=== PATIENT | female | born 1975 ===

== ENCOUNTER 2021-06-22 14:36 | Emergency (ER) | payer OTHER ==
[~2021-06-22] VITALS: Ht 180.3 cm; Wt 74.8 kg
[2021-06-22] MEDS ORDERED: ONDANSETRON ODT4 MG PO (14:58)
== END 2021-06-22 16:00 | disposition home or self-care (01) ==
LOC: ER 15:01
DX: U07.1 COVID-19 (principal); R06.02 Shortness of breath; R11.0 Nausea; R51.9 Headache, unspecified
CPT/HCPCS: 99283